=== PATIENT | male | born 1990 | race Caucasian/White ===

== ENCOUNTER 2022-06-25 07:00 | Day surgery (SDC) | payer BC ==
[~2022-06-25] VITALS: Ht 167.6 cm; Wt 61.7 kg
[~2022-06-25 07:00] MED LIST: ASPI81CH48 PO; INSU100I9 SC; INSUHUMDS SC; LANTINJ4 SC; LASI20TA3 PO; LEVO1TAB40 PO; LISI2.5T9 PO; LISI5TAB11 PO; NS 1,000 ML IV ONE; PANT40TA29 PO; ROSU5TAB5 PO
[2022-06-25] MEDS ORDERED: propofoL 200 MG/20 ML VIAL As Ordered ONE (07:11)
[2022-06-25] MEDS ORDERED: LIDOCAINE 2% 100MG/5ML SDV (FOR ANES.) As Ordered ONE (07:11)
[2022-06-25 09:18] VITALS: BP 121/71
== END 2022-06-25 09:20 | disposition home or self-care (01) ==
LOC: M OPP 07:00
PROVIDERS: ATTEND Internal Medicine Gastroenterology
DX: K64.4 Residual hemorrhoidal skin tags (principal); K64.8 Other hemorrhoids; R93.3 Abnormal findings on diagnostic imaging of other parts of digestive tract; F17.220 Nicotine dependence, chewing tobacco, uncomplicated; Z79.4 Long term (current) use of insulin; Z79.899 Other long term (current) drug therapy; Z91.013 Allergy to seafood